=== PATIENT | female | born 1955 ===

== ENCOUNTER → 2021-11-29 07:58 | Outpatient (CLI) | payer MEDICARE, SELFPAY | PROVIDERS: Referring Provider Nurse Practitioner; Visit Provider Nurse Practitioner | DX: R10.31 Right lower quadrant pain (principal); Z53.20 Procedure and treatment not carried out because of patient's decision for unspecified reasons ==

== ENCOUNTER → 2022-02-28 15:46 | Outpatient (CLI) | payer MEDICARE, OTHER, SELFPAY ==
--- NOTE | 2022-02-28 15:54 | DI.MRI.S_ITS ---
PROCEDURE: MR SHOULDER RT WO CON INDICATIONS: Other specified joint disorders, right shoulder TECHNIQUE: Noncontrast oblique coronal T2 fast spin echo with fat saturation, oblique sagittal T1 spin echo and T2 fast spin echo with fat saturation, axial T1 spin echo and T2 fast spin echo with fat saturation through the shoulder. COMPARISON: None. FINDINGS: Image quality: Excellent. Rotator cuff: Full-thickness rupture of distal supraspinatus and infraspinatus at their insertion on the humeral head is seen with up to 3.5 cm medial retraction of torn tendon fibers to the level of acromioclavicular joint. Distal subscapularis tendinosis is seen. Sagittal images demonstrate moderate supraspinatus muscle atrophy. Bones and bursae: No bone marrow contusions or fractures. Moderate acromioclavicular joint osteoarthritic changes are seen with joint space narrowing and downward osteophyte formation depressing the musculotendinous junction of supraspinatus. Superior migration of humeral head in relation to glenoid is seen. Osteoarthritic changes also seen in glenohumeral joint with joint space narrowing, subchondral sclerosis and subcortical cystic changes seen in superior anterior glenoid. Moderate subacromial subdeltoid bursal fluid is seen. No gross intra-articular loose bodies. Capsule and soft tissues: Signal abnormality and contour irregularity involving superior anterior labrum at 12 to 2 o'clock position is seen suggestive of labral tear. The long head of the biceps tendon is thickened intra-articularly with intrasubstance T2 hyperintense signal. The rotator interval appears normal, without fibrosis. The coracohumeral ligament is normal in thickness. IMPRESSION: 1. Full-thickness rupture of distal supraspinatus and infraspinatus at their insertions on humeral head with up to 3.5 cm medial retraction of torn tendon fibers to the level of acromioclavicular joint. Distal subscapularis tendinosis. Moderate supraspinatus muscle atrophy. 2. Moderate acromioclavicular joint osteoarthritis and [id number] glenohumeral joint osteoarthritis. Superior migration of humeral head in relation to glenoid. No fracture or dislocation. Moderate joint effusion and subacromial subdeltoid bursal fluid. No definite intra-articular loose bodies. 3. Suggestion of superior anterior labral tear at 12 to 2 o'clock position. 4. Tendinosis and low-grade intrasubstance partial-thickness tear involving proximal intra-articular portion of long head of biceps. Dictated by: Jun Nguyen M.D. on 02/28/2022 at 20:01 Approved by: Jun Nguyen M.D. on 02/28/2022 at 20:06
== END ==
PROVIDERS: Referring Provider Nurse Practitioner; Visit Provider Nurse Practitioner
DX: M25.811 Other specified joint disorders, right shoulder (principal); M75.121 Complete rotator cuff tear or rupture of right shoulder, not specified as traumatic; M19.011 Primary osteoarthritis, right shoulder; S43.431A Superior glenoid labrum lesion of right shoulder, initial encounter; S46.111A Strain of muscle, fascia and tendon of long head of biceps, right arm, initial encounter
CPT/HCPCS: 73221